=== PATIENT | male | born 1945 | race Caucasian/White ===

== ENCOUNTER 2019-12-02 07:56 | Observation (INO) ==
--- NOTE | 2019-11-01 13:13 | PAT Medication Instructions ---
Medication Instructions Date of Service November 01, 2019 Home Medications acetaminophen [Tylenol Arthritis Pain] 1,300 mg PO Q12H PRN atorvastatin 20 mg PO HS calcium acetate 2,001 - 2,668 mg PO TIDM docusate sodium [Stool Softener] 100 mg PO DAILY hydralazine 25 mg PO QAM insulin glargine [Lantus U-100 Insulin] 55 - 75 unit SUBCUT HS omeprazole 20 mg PO BID warfarin 2 mg PO 3XWK warfarin 4 mg PO 4XWK B complex-vitamin C-folic acid [Renal Vitamin] 1 tab PO DAILY insulin lispro [Humalog U-100 Insulin] 55 - 79 sliding scale dose SUBCUT TID metoprolol tartrate 12.5 mg PO BID DO NOT take the morning of surgery calcium acetate 2,001 - 2,668 mg PO TIDM docusate sodium [Stool Softener] 100 mg PO DAILY B complex-vitamin C-folic acid [Renal Vitamin] 1 tab PO DAILY insulin lispro [Humalog U-100 Insulin] 55 - 79 sliding scale dose SUBCUT TID Take morning of surgery With a small sip of water, OTHERWISE NOTHING TO EAT OR DRINK AFTER MIDNIGHT: acetaminophen [Tylenol Arthritis Pain] 1,300 mg PO Q12H PRN (if needed, may be taken up to four hours before surgery) hydralazine 25 mg PO QAM omeprazole 20 mg PO BID metoprolol tartrate 12.5 mg PO BID Take evening before surgery acetaminophen [Tylenol Arthritis Pain] 1,300 mg PO Q12H PRN (if needed) atorvastatin 20 mg PO HS calcium acetate 2,001 - 2,668 mg PO TIDM docusate sodium [Stool Softener] 100 mg PO DAILY (if needed) insulin glargine [Lantus U-100 Insulin] 55 - 75 unit SUBCUT HS omeprazole 20 mg PO BID insulin lispro [Humalog U-100 Insulin] 55 - 79 sliding scale dose SUBCUT TID metoprolol tartrate 12.5 mg PO BID Other Notes If you have any questions please call us at [phone] or [phone] or [phone] or [phone]
--- NOTE | 2019-11-01 13:28 | Anesthesiology Consultation ---
Date of Service November 01, 2019 Assessment & Plan (1) Encounter for pre-operative examination: CHECK BSG, PTT/PT/INR AM DOS Chart Review Chart Review: Acceptable Risk for Surgery (pending pre op labs) and Patient seen in Pre Admission Testing Teaching & Discussion Instructed NPO after midnight before surgery, except medications with 15 cc of water. Medication instructions provided according to the PAT guidelines. History Surgery Operation Date: 12/02/19 07:30 Proposed Procedures p Right Foot Triple Arthodesis, - Kwame Jimenez DO s Percutaneous Achilles Tendon Lengthening - Kwame Jimenez DO Height/Weight Height: 5 ft 10.5 in Weight: 117.5 kg Allergies Allergy/AdvReac Type Severity Reaction Status Date / Time lisinopril Allergy Unknown NOT TO Verified 10/26/19 13:30 TAKE DUE TO KIDNEY DISEASE pioglitazone Allergy Unknown NOT TO Verified 10/26/19 13:30 TAKE DUE TO KIDNEY DISEASE Medications Home Medications Medication Instructions Recorded Confirmed Last Taken acetaminophen [Tylenol Arthritis 1,300 mg PO Q12H PRN 07/05/19 10/26/19 Unknown Pain] atorvastatin 20 mg PO HS 07/05/19 10/26/19 Unknown calcium acetate 2,001 - 2,668 mg PO TIDM 07/05/19 10/26/19 Unknown docusate sodium [Stool Softener] 100 mg PO DAILY 07/05/19 10/26/19 Unknown hydralazine 25 mg PO QAM 07/05/19 10/26/19 Unknown insulin glargine [Lantus U-100 55 - 75 unit SUBCUT HS 07/05/19 10/26/19 Unknown Insulin] omeprazole 20 mg PO BID 07/05/19 10/26/19 Unknown warfarin 2 mg PO 3XWK 07/05/19 10/26/19 Unknown warfarin 4 mg PO 4XWK 07/05/19 10/26/19 Unknown B complex-vitamin C-folic acid 1 tab PO DAILY 10/26/19 10/26/19 Unknown [Renal Vitamin] insulin lispro [Humalog U-100 55 - 79 sliding scale dose SUBCUT 10/26/19 10/26/19 Unknown Insulin] TID metoprolol tartrate 12.5 mg PO BID 10/26/19 10/26/19 Unknown Past Medical History Medical History (Updated 11/01/19 @ 13:36 by Hasmukh Zuleta) A-V fistula left Anemia Ankle pain Barretts esophagus hx Chronic back pain Chronic kidney disease Deep vein thrombosis ~2009 S/P KNEE SURGERY Degenerative disc disease Diabetes mellitus, type 2 iddm Generalized pain GERD (gastroesophageal reflux disease) Hemodialysis patient Thursday, & Thursday at [facility] [place], [place] Hyperlipidemia Hypertension Kidney stones On anticoagulant therapy d/t history of blood clots Osteoarthritis Pulmonary embolism over 10 years ago, separate incident from DVT Exercise / Class Metabolic Activity III < 4 Walking/Shop/Light housework (using cane for ambulation, denies chest pain, some SOB, pt feels 2/2 ankle pain causing difficulty with ambulation) Past Surgical History Surgical History H/O shoulder replacement right History of cardiac cath [facility] July 2019. no stents. History of carpal tunnel release bilateral History of cataract surgery bilateral History of colonoscopy History of esophagogastroduodenoscopy (EGD) History of herniorrhaphy left inguinal hernia repair History of open reduction and internal fixation (ORIF) procedure left femur History of total knee replacement bilateral S/P arteriovenous (AV) fistula creation left S/P revision of total knee right Past Anesthesia History No Hx of Anesthesia Complications and No Family Hx of Anesthesia Complications History of PONV No Hx of PONV and No Hx of Motion Sickness Social History Smoking Status: Former smoker tobacco type: cigarettes and smokeless tobacco Do You Dip or Chew Tobacco: No (quit) Smoking End Date: quit Hx Alcohol Use: Yes Alcohol type: hard liquor alcohol intake frequency: holidays/special occasions only Hx Substance Use: No substance use type: does not use Review of Systems Pt denies any recent chest pain, shortness of breath, palpitations, cough, fever or URI. Physical Exam Vital Signs BP: 113/68 P: 88bpm SPO2: 96% RA T: 98.8 F R: 18 Constitutional + obese ENMT Mouth: + dentures and + edentulous Thyromental Distance: < 3.5 Finger Breadths (3) Mallampati Class: I Neck + thick neck and + limited neck extension (mildly, some pain with full extension) Respiratory normal respiratory effort Auscultation: lungs clear to auscultation bilaterally Cardiovascular Rate/Rhythm: regular rate and regular rhythm Heart Sounds: no murmur Testing Electrocardiogram Date: 08/08/19 Findings: + NSR @ (72) Chest X-Ray Date: 07/15/19 Findings: + NAD Echocardiogram Date: 02/21/19 EF: 65% Ventricle is mildly dilated. Overall left ventricular systolic function is normal. The left atrium is markedly dilated. The right atrium is mildly enlarged. Mild mitral regurgitation is present. The aortic valve is sclerotic with no evidence of stenosis or insufficiency. Mild to moderate tricuspid regurgitation. The pulmonic valve was not well visualized. Stress Test Date: 07/07/19 Type: nuclear Mild reversible ischemia noted in the distal inferolateral wall and adjoining apex. Borderline enlarged left ventricular volume with EF 67%. Mild hypokinesis and decreased wall thickening noted in the distal inferolateral wall and probably apex as well. Patient experienced no ischemic symptoms or EKG signs of ischemia during stress. Probability of stress-induced ischemia is intermediate considering position shifts during the study and imaging done with arm by the side of the patient. *Pt had subsequent cath as below. Cardiac Catheterization Date: 08/08/19 Nonobstructive CAD. There is no left main, separate ostia for the LAD/LCx. LAD has some luminal irregularities proximally and a 30% lesion in the distal, apical segment. LCx is a large dominant vessel with some luminal irregularities. Ramus is a large vessel with focal 40 to 50% disease proximally. RCA is a small, nondominant vessel and is angiographically normal. Recommendations: Continue risk factor modification with statin. No further work-up for CAD necessary prior to renal transplantation consideration.
[2019-11-01 16:03] LABS: Basophils # (auto) 0.02 K/uL (0-0.2); Basophils % (auto) 0.2 %; Eosinophils # (auto) 0.12 K/uL (0-0.5); Hematocrit (blood only) 36.3 % (42-52); Hemoglobin 11.7 g/dL (14.0-18.0); Immature Granulocytes # (auto) 0.13 K/uL (0.00-0.02); Immature Granulocytes % (auto) 1.1 %; Lymphocytes # (auto) 1.34 K/uL (1.2-3.4); Lymphocytes % (auto) 11.2 %; Mean Corpuscular Hemoglobin 33.3 pg (25-34); Mean Corpuscular Hgb Conc 32.2 g/dL (32-36); Mean Corpuscular Volume 103.4 fL (80-100); Monocytes # (auto) 0.71 K/uL (0.11-0.59); Neutrophils # (auto) 9.61 K/uL (1.4-6.5); Neutrophils % (auto) 80.5 %; Platelet Count 259 K/uL (130-400); RDW Coefficient of Variation 16.1 % (11.5-14.5); RDW Standard Deviation 60.2 fL (36.4-46.3); Red Blood Count 3.51 M/uL (4.7-6.1); White Blood Count 11.93 K/uL (4.8-10.8)
[2019-11-01 16:12] LABS: Appearance Urine Turbid (Clear); Bacteria Urine Automated Negative (Negative); Bilirubin Urine Negative (Negative); Blood Urine 1+ (Negative); Color Urine Yellow; Epithelial Cell Urine Auto >30 /lpf (0-5); Glucose Urine UA Negative (Negative); Ketones Urine Negative (Negative); Leukocyte Esterase Urine 2+ (Negative); Nitrite Urine Negative (Negative); Protein Urine 2+ (Negative); Specific Gravity Urine 1.019 (1.000-1.030); Urobilinogen Urine Negative (Negative); WBC Urine Automated >30 /hpf (0-5)
[2019-11-01 16:20] LABS: INR 2.6 (0.9-1.1); Partial Thromboplastin Ratio 1.4; Prothrombin Time 24.5 Seconds (9.0-12.0)
[2019-11-01 16:28] LABS: Calcium 10.1 mg/dl (8.5-10.1); Creatinine Clr Calc Pharmacy 13.8 ml/min; Est GFR (African American) 9.5; Est GFR (Non-African American) 8.2; Potassium 3.7 mmol/L (3.5-5.1)
[2019-11-01 16:49] LABS: Renal Epithelial Cells Urine 0-5 /lpf (0-5)
--- NOTE | 2019-12-01 14:42 | History & Physical Report ---
Date of Service December 01, 2019 Assessment & Plan (1) Posterior tibial tendon dysfunction (PTTD) of right lower extremity: Schedule right triple arthrodesis, perc. NEISHA for 12.02.2019. All potential risks, benefits, complications, alternatives, and rehab have been discussed with the patient and he wishes to proceed. Plan for restart of coumadin post op for DVT prophylaxis. (2) Primary osteoarthritis, right ankle and foot: (3) Achilles tendon contracture, right: History of Present Illness Chief Complaint: right foot pain Primary Care Provider: Chele Huitron DO Allergies Allergy/AdvReac Type Severity Reaction Status Date / Time lisinopril Allergy Unknown NOT TO Verified 10/26/19 13:30 TAKE DUE TO KIDNEY DISEASE pioglitazone Allergy Unknown NOT TO Verified 10/26/19 13:30 TAKE DUE TO KIDNEY DISEASE Home Medications Home Medications Medication Instructions Recorded Confirmed Type acetaminophen [Tylenol Arthritis 1,300 mg PO Q12H PRN 07/05/19 10/26/19 History Pain] atorvastatin 20 mg PO HS 07/05/19 10/26/19 History calcium acetate(phosphat bind) 2,001 - 2,668 mg PO TIDM 07/05/19 10/26/19 History docusate sodium [Stool Softener] 100 mg PO DAILY 07/05/19 10/26/19 History hydralazine 25 mg PO QAM 07/05/19 10/26/19 History insulin glargine [Lantus U-100 55 - 75 unit SUBCUT HS 07/05/19 10/26/19 History Insulin] omeprazole 20 mg PO BID 07/05/19 10/26/19 History warfarin 2 mg PO 3XWK 07/05/19 10/26/19 History warfarin 4 mg PO 4XWK 07/05/19 10/26/19 History B complex-vitamin C-folic acid 1 tab PO DAILY 10/26/19 10/26/19 History [Renal Vitamin] insulin lispro [Humalog U-100 55 - 79 sliding scale dose SUBCUT 10/26/19 10/26/19 History Insulin] TID metoprolol tartrate 12.5 mg PO BID 10/26/19 10/26/19 History Past Med/Surg History Medical History (Updated 12/01/19 @ 14:39 by Segundo White PA-C) A-V fistula LUE Anemia Ankle pain Barretts esophagus hx Chronic back pain Chronic kidney disease Deep vein thrombosis ~2009 S/P KNEE SURGERY Degenerative disc disease Diabetes mellitus, type 2 iddm Generalized pain GERD (gastroesophageal reflux disease) Hemodialysis patient Thursday, & Thursday at [facility] in [place], [place] Hyperlipidemia Hypertension Kidney stones On anticoagulant therapy d/t history of blood clots Osteoarthritis Pulmonary embolism over 10 years ago, separate incident from DVT Surgical History H/O shoulder replacement right History of cardiac cath [facility] July 2019. no stents. History of carpal tunnel release bilateral History of cataract surgery bilateral History of colonoscopy History of esophagogastroduodenoscopy (EGD) History of herniorrhaphy left inguinal hernia repair History of open reduction and internal fixation (ORIF) procedure left femur History of total knee replacement bilateral S/P arteriovenous (AV) fistula creation left S/P revision of total knee right Social History Preferred Language: Divehi Communication Ability: Effective Hazardous Substances Engineer Required: No Beliefs That Will Affect Care: None Current Living Situation: Spouse Other Information That Helps Us Care for You: No Feels Safe at Home: Yes Safety Concerns: Feels Safe At This Time Smoking Status: Former smoker Tobacco Type: cigarettes and smokeless tobacco ; Do You Dip or Chew Tobacco: No (quit) ; Smoking End Date: quit ; Second Hand Exposure: Yes (hx) ; Tobacco Cessation Education Requested by Patient: No Hx Alcohol Use: Yes Alcohol type: hard liquor Hx Substance Use: No Physical Exam Constitutional: well developed and well nourished; no acute distress and not intoxicated appearing ENMT: external ear and nose normal, oropharynx normal Neck: trachea midline, no thyromegaly Respiratory: normal respiratory effort, lungs clear to auscultation Cardiovascular: Rate/Rhythm: regular rate and regular rhythm Gastrointestinal (Abdomen): normal bowel sounds, soft, nontender, no hepatosplenomegaly Musculoskeletal: Gait: + antalgic gait (right) Ankle: + ankle abnormal to inspection (right pes planovalgus), + limited ROM of ankle (right dorsiflexion and inversion/eversion) and + joint line tenderness (ankle) (right sinus tarsi, PTT, and talonavicular joint.); no skin erythema and no ecchymosis Skin: no rashes, warm and dry Neurologic: normal touch/pain/proprioception Psychiatric: A+Ox3, euthymic affect Lymphatic: no cervical or axillary lymphadenopathy
[~2019-12-02 07:56] MED LIST: CEFAZOLIN 2000MG 2,000 MG/15 ML SYR IV SCH; ROPIVACAINE 0.5% 5 MG/ML 30 ML VIAL ONE; SODIUM CHLORIDE 0.9% 1000ML IV SCH
[2019-12-02 09:13] LABS: INR 1.1 (0.9-1.1); Partial Thromboplastin Ratio 1.1; Partial Thromboplastin Time 28.5 Seconds (21.0-31.0); Prothrombin Time 10.9 Seconds (9.0-12.0)
[2019-12-02] MEDS ORDERED: MIDAZOLAM HCL 1 MG/ML 2ML VIAL ONE (09:41)
[2019-12-02] MEDS ORDERED: ONDANSETRON INJ 2 MG/ML 2 ML VIAL ONE (09:41)
[2019-12-02] MEDS ORDERED: GLYCOPYRROLATE 0.2 MG/ML VIAL ONE (09:41)
[2019-12-02] MEDS ORDERED: DEXAMETHASONE SOD INJ 4 MG/ML VIAL ONE (09:41)
[2019-12-02] MEDS ORDERED: LIDOCAINE HCL 2% 2 ML VIAL/AMP(20MG/ML) INFIL ONE (09:41)
[2019-12-02] MEDS ORDERED: PROPOFOL IV EMULSION 10 MG/ML 20 ML VIAL IV ONE (09:41)
[2019-12-02] MEDS ORDERED: KETAMINE HCL INJ 50 MG/ML 10 ML VIAL ONE (09:41)
--- NOTE | 2019-12-02 10:00 | History & Physical Bridge Note ---
Date of Service December 02, 2019 History & Physical Bridge Note I have examined the patient, reviewed the History & Physical and in the interval since the performance of the History & Physical I have noted the following changes of clinical significance: no changes noted
[2019-12-02] MEDS ORDERED: BUPIVACAINE 0.25% 30 ML VIAL ONE (10:08)
[2019-12-02] MEDS ORDERED: BACITRACIN INJ 50,000 UNIT VIAL ONE (10:18)
[2019-12-02 10:21] LABS: BUN Creatinine Ratio 6.1 (10-20); Calcium 9.4 mg/dl (8.5-10.1); Creatinine Clr Calc Pharmacy 11.4 ml/min; Est GFR (African American) 7.5; Est GFR (Non-African American) 6.5; Potassium 3.8 mmol/L (3.5-5.1)
[2019-12-02] MEDS ORDERED: fentaNYL citrate 100 MCG/2 ML VIAL IV PRN (11:23)
[2019-12-02] MEDS ORDERED: HYDROmorphone INJ 1 MG/ML SYRINGE IV PRN (11:23)
[2019-12-02] MEDS ORDERED: ePHEDrine sulfate 50 MG/ML AMP IV PRN (11:23)
[2019-12-02] MEDS ORDERED: ATROPINE SULFATE 0.1 MG/ML 10ML SYR IV PRN (11:23)
[2019-12-02] MEDS ORDERED: ONDANSETRON INJ 2 MG/ML 2 ML VIAL IV PRN (11:23)
[2019-12-02] MEDS ORDERED: fentaNYL citrate 100 MCG/2 ML VIAL ONE ×3 (12:23→13:55)
[2019-12-02] MEDS ORDERED: CEFAZOLIN 250 MG/ML 1 GM VIAL ONE (13:02)
--- NOTE | 2019-12-02 13:52 | Fluoroscopy Report ---
FL foot RT 2V HISTORY: 74 years-old Male RIGHT FOOT TRIPLE ARTHODESIS COMPARISON: None TECHNIQUE: 2 spot fluoroscopic images of the right foot were obtained utilizing 24.2 seconds fluorosc opy time FINDINGS: There are 3 total cannulated screws of the hindfoot traversing the calcaneal navicular, cuboid calcan eal and talocalcaneal articulations compatible with subtalar arthrodesis. Expected postsurgical soft tissue swelling and deep tissue air. Multifocal osteoarthritis with marginal osteophytic spurring. Schilling rgical mary beth are noted projected over the posterior tissues at the level of the distal Achilles ten don. IMPRESSION: Fluoroscopic assistance as above. Please see operative report for further details. ACT 112: Negative or not required by law. The above report was generated using voice recognition software. It may contain grammatical, syntax o r spelling errors. Electronically signed by: Nilesh Mccormick M.D. 12/02/2019 1:50 PM
--- NOTE | 2019-12-02 14:19 | Post Operative Brief Note ---
Immediate Post Op Note v1 Date of Surgery December 02, 2019 Pre & Post Diagnosis Operation Date: 12/02/19 10:20 Pre-Op Diagnosis: (1) Posterior tibial tendon dysfunction (PTTD) of right lower extremity:. (2) Primary osteoarthritis, right ankle and foot: (3) Achilles tendon contracture, (4) os trigonum syndrome right: Post-Op Diagnosis: (1) Posterior tibial tendon dysfunction (PTTD) of right lower extremity: (2) Primary osteoarthritis, right ankle and foot: (3) Achilles tendon contracture, right: (4) Os Trigonum syndrome I identified the patient and participated in the time-out.: Yes Procedure Operation Date: 12/02/19 10:20 Actual Procedures p Right Foot Triple Arthodesis, Resection of Os Trigonum,(Right) - Kwame Jimenez DO s Percutaneous Achilles Tendon Lengthening(Right) - Kwame Jimenez DO Surgeon Kwame Jimenez DO Product Blending Supervisor Segundo White PA-C Estimated Blood Loss 5 Findings Consistent with Post-Op Diagnosis Specimens None Drains Hemovac Drain Anesthesia Type General Regional Complications none Disposition Accompanied Patient To Recovery: Yes Disposition: Recovery Room
--- NOTE | 2019-12-02 15:06 | Anesthesiology Progress Note ---
Date of Service December 02, 2019 Anesthesia Post Procedure Vital Signs Vital Signs: Temp Pulse Pulse Resp BP Pulse Ox 12/02/19 14:59 37.3 C 88 19 133/84 97 12/02/19 14:50 92 H 17 109/59 L 95 12/02/19 14:40 87 16 129/79 97 12/02/19 14:30 91 H 15 125/56 L 97 12/02/19 14:20 92 H 21 128/55 L 97 12/02/19 14:10 84 17 129/50 L 99 12/02/19 14:04 37.1 C 87 24 123/47 L 99 12/02/19 08:30 36.8 C 79 20 137/67 98 Pain Intensity Right Ankle: Pain Intensity: 0 Transfer of Care Handoff Completed per policy Notes Mental Status: alert / awake / arousable and participated in evaluation Patient Amnestic to Procedure: Yes Nausea / Vomiting: adequately controlled Pain: adequately controlled Airway Patency, RR, SpO2: stable & adequate BP & HR: stable & adequate Hydration State: stable & adequate Anesthetic Complications: no major complications apparent and Pt Satisfied with anesthetic care Notes: Block is functioning well
[2019-12-02] MEDS ORDERED: NALOXONE HCL 0.4 MG/1 ML VIAL/CARP IV PRN (15:21)
[2019-12-02] MEDS ORDERED: MAGNESIUM HYDROXIDE SUSP 30 ML UDC PO PRN (15:21)
[2019-12-02] MEDS ORDERED: bisacodyL 10 MG SUPP PR PRN (15:21)
[2019-12-02] MEDS ORDERED: HYDROmorphone INJ 0.5 MG/0.5 ML SYR IV PRN (15:21)
[2019-12-02] MEDS ORDERED: SODIUM CHLORIDE 0.9% 1000ML 1,000 ML IV SCH (15:21)
[2019-12-02] MEDS ORDERED: PHARMACY GLYCEMIC MGMT CONSULT PRN (15:30)
[2019-12-02] MEDS ORDERED: CARBOHYDRATES FOR HYPOGLYCEMIA PO PRN (16:15)
[2019-12-02] MEDS ORDERED: GLUCAGON FOR INJ 1 MG VIAL IM PRN (16:15)
[2019-12-02] MEDS ORDERED: GLUCOSE 40% GEL 15 GM TUBE PO PRN (16:15)
[2019-12-02] MEDS ORDERED: DEXTROSE 50% 50 ML SYRINGE IV PRN (16:15)
[2019-12-02] MEDS ORDERED: GLUCOSE 10 TABS/TUBE PO PRN (16:15)
--- NOTE | 2019-12-02 16:18 | Pharmacy Report ---
Glycemic Control Consultation - Date of Service December 02, 2019 - Scope Scope: Glycemic Pharmacist consulted by Susanna John on 12/02/2019 for glycemic control and to write orders per [facility] inpatient glycemic control protocol - Objective Weight: 118 kg Accuchecks BSG (last 24hrs): 12/02/19 12/02/19 12/02/19 08:29 08:46 14:09 Glucose 146 H POC Glucose 157 H 185 H Laboratory Data (last 24hrs): 12/02/19 08:46 Potassium 3.8 Carbon Dioxide 29 Anion Gap 13.0 H Creatinine 7.51 H* Est Cr Clr Drug Dosing 11.4 - Recent Pertinent Medications Outpatient Anti-diabetic Regimen: * Lantus 55-75 units nightly (per scale) and Novolog 55-79 units TIDM (per scale) * A1c not reflective of control due to HD status Risk Factors for Insulin Resistance: * Steroids: dexamethasone 4 mg intraoperatively * Recent Surgery POD 0 for tendon repair * Diet: T2DM - Assessment & Plan Assessment & Plan: ASSESSMENT: * Mr Woodard is a very nice gentleman who came in for tendon surgery repair. I was able to talk to him via the phone. * He takes Lantus as a scale in the evening. Sometimes, when his blood sugar is below 150 mg/dL, he does not take Lantus. He was not able to estimate the number of times per week he takes Lantus. I asked when was the highest dose he took this week. He told me he took 75 units last Thursday when his BSG was over 230 mg/dL. He then did not take Lantus the next day. Two days after Lantus he took a smaller dose (aka 30-40 units). This indicates to me that the patient's true basal needs is probably around 40 units/day. With dexamethasone in the OR (and the fact that the patient did not take Lantus last night) will give 55 units (40 multiplied by about 1.2 to account for steroids). * It was difficult for me to tease out the patient's Novolog requirements. He told me he eats a lot of protein anymore. With steroids, I think it is fine to utilize weight-based stress of 3 for now. This will need to be loosened. * Patient does not take insulin if BSG less than 150 mg/dL at home. He said he would take insulin here if his BSG was less than that though. He reported hypoglycemia with BSGs around 80 mg/dL. * Does not really have hypoglycemia anymore at home since he stopped taking insulin when BSG less than 150 mg/dL. PLAN FOR INPATIENT GLYCEMIC CONTROL: * Basal insulin * Lantus 55 units SQ x 1 * Bolus insulin * NovoLog per scale ACHS or Q6hrs while NPO * Goal Range: Low 120 mg/dL - High 150 mg/dL * Correction Factor: 15 mg/dL/unit * Nutritional / Prandial insulin per carb ratio of 1 unit per 5 grams CHO consumed * Please note that the plan above was derived based on current level of insulin resistance and hospital stress. These recommendations are appropriate for inpatient admission only. Plan of care upon discharge will need to be reassessed to avoid potential outpatient hypo/hyperglycemia. Thank you.
[2019-12-02] MEDS ORDERED: INSULIN GLARGINE SOLOSTAR 100 UNITS/ML 3 ML PEN SC ONE (16:30)
--- NOTE | 2019-12-02 16:36 | Consultation ---
Date of Consultation December 02, 2019 Assessment & Plan (1) S/P ankle arthrodesis: (2) Achilles tendon contracture, right: (3) Primary osteoarthritis, right ankle and foot: (4) Posterior tibial tendon dysfunction (PTTD) of right lower extremity: S/P R ankle Triple Arthrodesis with resection of os trigonum by Dr. Jimenez POD #0 EBL 5ml, hemovac in place tolerated procedure well pain/wound management per ortho activity and therapy as directed by ortho encourage incentive spirometry warfarin and anticoagulation per ortho, recommend resuming lovenox/warfarin bridge when able monitor H&H (5) ESRD (end stage renal disease): on HD Dr. Agosto consulted to have HD tomorrow Daily weights, strict I and O Fluid restriction Stop IV fluid (6) Diabetes mellitus, type 2: Insulin-dependent On hemodialysis Glycemic pharmacist on board, appreciate their input and management (7) Hypertension: Blood pressure 134/66 Continue metoprolol and hydralazine (8) Barretts esophagus: Continue omeprazole (9) Anemia: Secondary to chronic renal disease Preop H&H 11.7 and 36.3 (10) Deep vein thrombosis: hx of PE, unprovoked On long-term warfarin therapy Anticoagulation as per surgery -he was on Lovenox bridge preop, would recommend resuming after 24 hours postop Disposition: Per primary Follow-up: PCP Dr. Skaggs upon discharge along with appropriate orthopedic follow-up Pt was seen and examined with Dr. Truong please see addendum Thank you for this consultation. We will follow the patient with you during their hospital stay. You can reach a [facility]/05 via pager @ [phone]. Starting 12/03/2019 patient given the care of Dr. Trinidad Supervising Physician Co-Signing Physician Notes I saw this patient with the physician education assistant, I participated in the history, physical, review of systems, and physical exam. I reviewed the medications with the patient and the physician education assistant and helped reconcile the medications. I helped take a detailed family and social history as well. I formulated the assessment and plan personally with the physician education assistant and went over it with the patient. Physical Exam Gen-AAO x 3, NAD, Afebrile, obese Head-NCAT, EOMI, PERRLA, Anicteric Sclera, No Posterior Pharyngeal Erythema Neck-Supple, No JVD, No Thyromegaly, No Masses, No LAD, No Bruits Lungs-Clear to Auscultation Bilaterally, No Rales, No Rhonchi, No Wheezing, No Crepitus Chest-No S4, +S1, +S2, No S3, No Murmurs, No Rubs, No Gallops, No Ectopy Abdomen-Soft, Bowel Sounds Present, Non Tender, Non Distended, No Hepatomegaly, No Splenomegaly, No Palpable Masses, No Rebound, No Rigidity, No Guarding Musculoskeletal-Full Range of Motion Bilaterally, No CVAT Extremities-No Cyanosis, No Clubbing, No Edema, R ankle c Ice pack and Heme vac Nuero-Cranial Nerves II-XII grossly intact, Motor WNL, DTRs WNL, Strength WNL, Non Focal Psych-Normal Mood History of Present Illness Requesting Physician: Dr. Jimenez Reason for Consultation: Postop medical management Attending Physician: Kwame Jimenez, History of Present Illness This is a 74-year-old male who has significant past medical history of ESRD on HD //, CAD, IDDM 2, HTN, HLD, history of PE on long-term anticoagulation with warfarin, chronic low back pain, Gauthier's esophagus, anemia of chronic disease who presents for elective right foot triple arthrodesis by Dr. Jimenez. is at bedside. He tolerated the procedure well. "I could have went home today but I need to have dialysis tomorrow." He currently complains of back pain which is chronic for him. He denies any pain on the right foot. He denies any fever, chills, sweats, lightheadedness, dizz iness, chest pain, shortness of breath, palpitations, nausea, vomiting, abdominal pain. He is mostly anuric with hemodialysis. Currently has an appetite. He offers no acute concerns or complaints. He tells me his dialysis has been pre arranged for tomorrow. He has hx of CAD. Currently been worked up for renal transplant and had + stress test for inducible ischemia. He underwent cardiac catheterization on 07/2019 which revealed nonobstructive CAD with left dominance. He is unsure of his last A1c but is currently insulin-dependent. States his blood sugars are frequently under 150. Does have history of PE many years ago, unprovoked. Since then he is maintained on warfarin and was on Lovenox bridge until 11/30/2019. Allergies Allergy/AdvReac Type Severity Reaction Status Date / Time lisinopril Allergy Unknown NOT TO Verified 12/02/19 08:32 TAKE DUE TO KIDNEY DISEASE pioglitazone Allergy Unknown NOT TO Verified 12/02/19 08:32 TAKE DUE TO KIDNEY DISEASE Home Medications Home Medications Medication Instructions Recorded Confirmed Type acetaminophen [Tylenol Arthritis 1,300 mg PO Q12H PRN 07/05/19 12/02/19 History Pain] atorvastatin 20 mg PO HS 07/05/19 12/02/19 History calcium acetate(phosphat bind) 2,001 - 2,668 mg PO TIDM 07/05/19 12/02/19 History docusate sodium [Stool Softener] 100 mg PO DAILY 07/05/19 12/02/19 History hydralazine 25 mg PO QAM 07/05/19 12/02/19 History insulin glargine [Lantus U-100 55 - 75 unit SUBCUT HS 07/05/19 12/02/19 History Insulin] omeprazole 20 mg PO BID 07/05/19 12/02/19 History warfarin 2 mg PO 3XWK 07/05/19 12/02/19 History warfarin 4 mg PO 4XWK 07/05/19 12/02/19 History B complex-vitamin C-folic acid 1 tab PO DAILY 10/26/19 12/02/19 History [Renal Vitamin] insulin lispro [Humalog U-100 55 - 79 sliding scale dose SUBCUT 10/26/19 12/02/19 History Insulin] TID metoprolol tartrate 12.5 mg PO BID 10/26/19 12/02/19 History Lovenox SUBCUT DAILY 12/02/19 History Patient History Medical History A-V fistula LUE Anemia Ankle pain Barretts esophagus hx Chronic back pain Chronic kidney disease Deep vein thrombosis ~2009 S/P KNEE SURGERY Degenerative disc disease Diabetes mellitus, type 2 iddm Generalized pain GERD (gastroesophageal reflux disease) Hemodialysis patient Thursday, & Thursday at [facility] in [place], [place] Hyperlipidemia Hypertension Kidney stones On anticoagulant therapy d/t history of blood clots Osteoarthritis Pulmonary embolism over 10 years ago, separate incident from DVT Surgical History H/O shoulder replacement right History of cardiac cath [facility] July 2019. no stents. History of carpal tunnel release bilateral History of cataract surgery bilateral History of colonoscopy History of esophagogastroduodenoscopy (EGD) History of herniorrhaphy left inguinal hernia repair History of open reduction and internal fixation (ORIF) procedure left femur History of total knee replacement bilateral S/P arteriovenous (AV) fistula creation left S/P revision of total knee right Family History Mother Family hx of colon cancer Uncle Family history of diabetes mellitus Social History Preferred Language: Bhutanese Communication Ability: Effective Kiln Furniture Caster Required: No Beliefs That Will Affect Care: None Current Living Situation: Spouse Other Information That Helps Us Care for You: No Feels Safe at Home: Yes Safety Concerns: Feels Safe At This Time Smoking Status: Former smoker Tobacco Type: cigarettes and smokeless tobacco ; Do You Dip or Chew Tobacco: No (quit) ; Smoking End Date: quit ; Second Hand Exposure: Yes (hx) ; Tobacco Cessation Education Requested by Patient: No Hx Alcohol Use: Yes Alcohol type: hard liquor Hx Substance Use: No Review of Systems Review of Systems: All systems reviewed & are unremarkable except as noted in HPI & below Physical Exam Physical Exam: Constitutional: WD/WN, M, vitals as above, NAD, sitting up in bed, pleasant, conversing easily Head: Normocephalic, Atraumatic Eyes: PERRL, conjunctivae normal, anicteric sclerae ENMT: external ear and nose normal, oropharynx normal Neck: trachea midline, no thyromegaly normal visual inspection Respiratory: normal respiratory effort, lungs clear to auscultation, no wheeze, rales, rhonchi. Normal insp/exp effort, no accessory muscle use Cardiovascular: RRR, no murmur, no edema, LUE AV Fistula patent bruit Vessels: no JVD or carotid bruit Chest: normal inspection of chest Abdomen: normal bowel sounds, soft, nontender, no hepatosplenomegaly Musculoskeletal: no cyanosis or clubbing, extremities active ROM x 3, RLE c ast/dressing NVI distally, hemovac in place Skin: no rashes, warm and dry normal turgor Neurologic: PERRL, EOMI, accommodation nl, no face palsy, no dysarthria CN's II-XI intact bilaterally and moves all extremities Psychiatric: A+Ox3, euthymic affect Lymphatic: no cervical or axillary lymphadenopathy : deferred Results & Data ([facility]) Vital Signs (Past 12 Hours) Vital Signs Temp Pulse Pulse Resp BP Pulse Ox 12/02/19 16:30 37.1 C 81 18 134/66 95 12/02/19 15:10 85 14 133/45 L 96 12/02/19 15:00 37.3 C 88 19 133/84 97 12/02/19 14:50 92 H 17 109/59 L 95 12/02/19 14:40 87 16 129/79 97 12/02/19 14:30 91 H 15 125/56 L 97 12/02/19 14:20 92 H 21 128/55 L 97 12/02/19 14:10 84 17 129/50 L 99 12/02/19 14:04 37.1 C 87 24 123/47 L 99 12/02/19 08:30 36.8 C 79 20 137/67 98 Laboratory Results [facility] 12/02/19 08:46 Sodium 134 L Potassium 3.8 Chloride 92 L Carbon Dioxide 29 BUN 46 H Creatinine 7.51 H* Glucose 146 H Calcium 9.4 Diagnostic Findings Foot Xray: FINDINGS: There are 3 total cannulated screws of the hindfoot traversing the calcaneal navicular, cuboid calcaneal and talocalcaneal articulations compatible with subtalar arthrodesis. Expected postsurgical soft tissue swelling and deep tissue air. Multifocal osteoarthritis with marginal osteophytic spurring. Surgical mary beth are noted projected over the posterior tissues at the level of the distal Achilles tendon. IMPRESSION: Fluoroscopic assistance as above. Please see operative report for further details. Medications Administered Discontinued Medications Bacitracin (Bacitracin) Confirm Administered Dose 50,000 units .ROUTE .STK-MED ONE Stop: 12/02/19 10:19 Last Admin: 12/02/19 13:37 Dose: 50,000 units Documented by: [id number] Cefazolin Sodium (Ancef 2000mg) 2,000 mg in 15 mls @ 3.75 mls/min IV PREOP ANTHONY; Protocol Stop: 12/02/19 18:00 Last Admin: 12/02/19 10:44 Dose: 3.75 mls/min Documented by: [id number] Sodium Chloride (Nss 1000ml) 1,000 mls @ 15 mls/hr IV .Q24H ANTHONY Stop: 12/03/19 05:59 Last Infusion: 12/02/19 10:45 Dose: 0 mls/hr Documented by: [id number] Admin: 12/02/19 08:54 Dose: 15 mls/hr Documented by: [id number] ECG Rate (beats per minute): 82 Rhythm: normal sinus Findings: + prolonged QT (qtc 499ms)
[2019-12-02] MEDS: ACETAMINOPHEN 500 MG TAB PO SCH ×2 (17:15→21:34)
[2019-12-02] MEDS: CALCIUM ACETATE 667 MG CAP PO SCH (17:51)
[2019-12-02] MEDS: CEFAZOLIN 2000MG 2,000 MG/15 ML SYR IV SCH (17:52)
[2019-12-02] MEDS: WARFARIN SOD 5 MG TAB PO SCH (17:52)
[2019-12-02] MEDS: INSULIN ASPART 100 UNITS/ML 3 ML PEN SC SCH ×2 (18:04→21:36)
--- NOTE | 2019-12-02 19:10 | Operative Report ---
DATE OF OPERATION: 12/02/2019 PREOPERATIVE DIAGNOSES: 1. Right hindfoot degenerative joint disease. 2. Osteoarthritis. 3. Posterior tibial tendon dysfunction grade 3. 4. Achilles tendon contracture. 5. Os trigonum syndrome. POSTOPERATIVE DIAGNOSES: 1. Right hindfoot degenerative joint disease. 2. Osteoarthritis. 3. Posterior tibial tendon dysfunction grade 3. 4. Achilles tendon contracture. 5. Os trigonum syndrome. PROCEDURES: 1. Right foot triple arthrodesis. 2. Percutaneous tendo Achilles lengthening. 3. Resection os trigonum. SURGEON: Kwame Jimenez DO BEAM MACHINE OPERATOR: Segundo White PA-C who was present for patient positioning, sterile prep and drape, management of retractors and instruments. He was present through the critical portions of the case including wound closure, application of sterile dressing and transport of the patient to recovery. ANESTHESIA: General regional. SPECIMENS: None. DRAINS: Hemovac x1. COMPLICATIONS: None. BLOOD LOSS: 2 mL. PERTINENT HISTORY: This is a 74-year-old gentleman who had severe chronic and worsening pain, swelling and deformity of the right foot which is worse over the last 6 to 8 months. He had severe sharp pain along the medial and lateral aspects of the hindfoot. He was seen in clinic. He was evaluated with radiographs and physical exam, noted to have likely rupture of his posterior tibial tendon. MRI was then obtained noting confirmation of rupture of the posterior tibial tendon with degenerative arthritis of the hindfoot. The patient had already attempted and failed physical therapy, modification of activities, use of an assistive device, anti-inflammatories and failed these measures. The patient was then scheduled for surgery as indicated. All potential risks, benefits, complications, alternatives, potential for incomplete relief of symptoms, need for further surgery, DVT, PE, , persistent pain, swelling, scarring, weakness, neurovascular injury, wound complications, hardware failure, nonunion, malunion and bone fracture were discussed with the patient. The patient tolerated the procedure as indicated. DESCRIPTION OF PROCEDURE: The patient was taken to the Operating Suite, placed supine on the Operating Room table, after consent and identification of the proper operative site, the patient was anesthetized. LMA was placed. Tourniquet was placed high on the left lower extremity. Right lower extremity was then sterilely prepped and draped in the usual fashion. Exsanguinated with an Esmarch bandage and tourniquet inflated to 350 mmHg. Next, the foot was held in dorsiflexion and a three-part percutaneous incision was made with an 11-blade scalpel to lengthen the Achilles tendon using standard technique. Next, the stab incisions were then closed using interrupted skin mary beth. Next, the 15-blade scalpel was used to make an incision from the distal aspect of the fibula to the base of the fourth metatarsal. The incision was deepened through subcutaneous tissue and meticulous hemostasis was obtained with electrocautery. Subcutaneous nerves were identified, retracted and protected. The extensor digitorum brevis was identified and was sharply elevated from the anterior process of the calcaneus revealing the sinus tarsi. Next, the sinus tarsi was debrided carefully with a rongeur and 15-blade scalpel. A cervical lamina special makeup fx artist instructor was placed in the sinus tarsi opening the subtalar joint. Subtalar joint was then prepared using curette and rongeur to remove articular cartilage down to subchondral bone. Copious irrigation was performed with sterile normal saline and then 2-mm drill bit was used to further prepare the joint surface with multiple drill holes in both surfaces of the subtalar joint and a small osteotome and mallet were used to fish scale the joint surfaces to increase surface area and bleeding. There is a large symptomatic os trigonum noted in the posterior aspect of the joint, this was then elevated with a curved curette and then sharply excised using a rongeur and a 15 blade scalpel. This fragment was then saved for later use as autograft. Next, the calcaneocuboid joint was then entered with the 15-blade scalpel, debrided of soft tissue and then a lamina special makeup fx artist instructor was placed in the joint opening it for preparation with a curette and rongeur to remove any articular surface down to subchondral bleeding bone. Next, the 2-mm drill bit was used to further prepare the joint with multiple drill holes into the joint and then a small osteotome and mallet were used to fish scale the joint. Next, the 15-blade was used to make an incision from the distal aspect of the tibia to the base of the naviculocuneiform joint. The incision was deepened through subcutaneous tissue. Meticulous hemostasis obtained with electrocautery. A Weitlaner retractor was placed in the wound. The greater saphenous vein was identified, retracted and protected. The capsule of the talonavicular joint was then entered sharply with a 15-blade scalpel and elevated both superior and inferiorly. A small Cameron was placed on the neck of the talus and further soft tissue elevation was performed with the 15-blade scalpel until the talonavicular joint was clearly visualized. The articular surface was then debrided with curette and rongeur and a cervical lamina special makeup fx artist instructor was placed in the joint. Next, it was irrigated with sterile normal saline and a 2-mm drill bit was used to make multiple holes in the joint surfaces and fish scaling was performed with a small osteotome and mallet. Next, the medial and lateral incisions were irrigated with sterile normal saline and the joint surfaces were then aligned appropriately based on alignment of the lower extremity and the kneecap. Subtalar joint was aligned and then a 7.3-mm cannulated guidepin was driven from the superior aspect of the talus across the subtalar joint into the calcaneus under fluoroscopic control. Next, an appropriate length 7.3-mm short-thread screw was placed under fluoroscopic control and countersunk slightly. Next, the guidepin was removed. Next, A 2.25 mm guidepin was used to stabilize the talonavicular joint in appropriate alignment and then the calcaneocuboid joint was then stabilized with appropriate alignment with a 2.25 mm guidepin under fluoroscopic control. Next, 7.3 mm long-thread cannulated screws were placed across the talonavicular and calcaneocuboid joints respectively under fluoroscopic control. All guidepins were removed. Wounds were irrigated with sterile normal saline and bone graft was then packed in and around the subtalar, talonavicular and calcaneocuboid joints which was comprised of morselized Autograft and approximately 15 cc cc of cancellous bone chips. A 10-Belgian single lumen Hemovac drain was then placed in the lateral aspect of the wound exiting dorsolaterally and the extensor digitorum brevis then closed back to its origin with interrupted 2-0 Vicryl sutures. The talonavicular joint capsule was closed using 2-0 Vicryl sutures. The dermis was closed using buried interrupted 3-0 Vicryl sutures medially and laterally and then skin incisions were closed using 4-0 Nylon sutures. A sterile compressive dressing and bulky Stevenson-Montemayor plaster splint was applied, overwrapped with an Leonardo wrap. The tourniquet was released. DISPOSITION: Patient awakened, toes noted pink and warm and then the patient was taken to Recovery in stable condition. I attest to the content of the Intraoperative Record and any orders documented therein. Any exceptions are noted below. MTDD
[2019-12-02] MEDS: DOCUSATE SODIUM 100 MG CAP PO SCH (20:14)
[2019-12-02] MEDS: METOPROLOL TARTRATE 25 MG TAB PO SCH (20:14)
[2019-12-02] MEDS ORDERED: ATORVASTATIN 20 MG TAB PO SCH (21:00)
--- NOTE | 2019-12-02 22:52 | Nephrology Consultation ---
Date of Consultation December 02, 2019 Assessment & Plan (1) ESRD (end stage renal disease): ESRD on HD TTS. Last HD was . Electrolytes are stable and no signs of volume overload. Will do HD tomorrow for 3.5hrs and target UF1.5 litres (2) Anemia: Hb is 11.7. No need for PRETTY (3) Hypertension: BP is controlled. Hold hydralazine in the morning pre HD History of Present Illness Reason for Consultation: ESRD Requesting Physician: Kwame Jimenez DO Attending Physician: Kwame Jimenez DO History of Present Illness This is a 74-year-old male who has significant past medical history of [facility]D on HD [facility]. Other PMH i nclude: CAD, IDDM 2, HTN, HLD, history of PE on long-term anticoagulation with warfarin, chronic low back pain, Gauthier's esophagus and anemia of chronic disease. Patient is s/p elective right foot triple arthrodesis by Dr. Jimenez. His last HD was . He denies any SOB or leg swelling. he has left UA AVF. He is normally dialysed for 4hrs. Allergies Allergy/AdvReac Type Severity Reaction Status Date / Time lisinopril Allergy Unknown NOT TO Verified 12/02/19 08:32 TAKE DUE TO KIDNEY DISEASE pioglitazone Allergy Unknown NOT TO Verified 12/02/19 08:32 TAKE DUE TO KIDNEY DISEASE Home Medications Home Medications Medication Instructions Recorded Confirmed Type acetaminophen [Tylenol Arthritis 1,300 mg PO Q12H PRN 07/05/19 12/02/19 History Pain] atorvastatin 20 mg PO HS 07/05/19 12/02/19 History calcium acetate(phosphat bind) 2,001 - 2,668 mg PO TIDM 07/05/19 12/02/19 History docusate sodium [Stool Softener] 100 mg PO DAILY 07/05/19 12/02/19 History hydralazine 25 mg PO QAM 07/05/19 12/02/19 History insulin glargine [Lantus U-100 55 - 75 unit SUBCUT HS 07/05/19 12/02/19 History Insulin] omeprazole 20 mg PO BID 07/05/19 12/02/19 History warfarin 2 mg PO 3XWK 07/05/19 12/02/19 History warfarin 4 mg PO 4XWK 07/05/19 12/02/19 History B complex-vitamin C-folic acid 1 tab PO DAILY 10/26/19 12/02/19 History [Renal Vitamin] insulin lispro [Humalog U-100 55 - 79 sliding scale dose SUBCUT 10/26/19 12/02/19 History Insulin] TID metoprolol tartrate 12.5 mg PO BID 10/26/19 12/02/19 History Lovenox SUBCUT DAILY 12/02/19 History Patient History Medical History A-V fistula LUE Anemia Ankle pain Barretts esophagus hx Chronic back pain Chronic kidney disease Deep vein thrombosis ~2009 S/P KNEE SURGERY Degenerative disc disease Diabetes mellitus, type 2 iddm Generalized pain GERD (gastroesophageal reflux disease) Hemodialysis patient Thursday, & Thursday at [facility] in [place], [place] Hyperlipidemia Hypertension Kidney stones On anticoagulant therapy d/t history of blood clots Osteoarthritis Pulmonary embolism over 10 years ago, separate incident from DVT Surgical History H/O shoulder replacement right History of cardiac cath [facility] July 2019. no stents. History of carpal tunnel release bilateral History of cataract surgery bilateral History of colonoscopy History of esophagogastroduodenoscopy (EGD) History of herniorrhaphy left inguinal hernia repair History of open reduction and internal fixation (ORIF) procedure left femur History of total knee replacement bilateral S/P arteriovenous (AV) fistula creation left S/P revision of total knee right Family History Mother Family hx of colon cancer Uncle Family history of diabetes mellitus Social History Preferred Language: Bulgarian Communication Ability: Effective Custodial Engineer Required: No Beliefs That Will Affect Care: None Current Living Situation: Spouse Other Information That Helps Us Care for You: No Feels Safe at Home: Yes Safety Concerns: Feels Safe At This Time Smoking Status: Former smoker Tobacco Type: cigarettes and smokeless tobacco ; Do You Dip or Chew Tobacco: No (quit) ; Smoking End Date: quit ; Second Hand Exposure: Yes (hx) ; Tobacco Cessation Education Requested by Patient: No Hx Alcohol Use: Yes Alcohol type: hard liquor Hx Substance Use: No Review of Systems Review of Systems: All systems reviewed & are unremarkable except as noted in HPI & below Physical Exam Physical Exam: General exam: Appears comfortable, no acute distress HEENT: Pupils are equal and reactive to light Neck: No JVD, neck is supple trachea is midline Respiratory system: Clear breath sounds bilaterally. Gastrointestinal: Abdomen is soft, non distended, non tender, bowel sounds are present CVS: Regular rate and rhythm. No murmurs, rubs or gallops Musculoskeletal: No joint or muscle tenderness Extremities: Non tender, no edema, peripheral pulses are present Neuro: Oriented, no tremors, no focal neurological deficits Skin: No rashes Access: AVF Results & Data Vital Signs (Past 12 Hours) Vital Signs Temp Pulse Pulse Resp BP Pulse Ox 12/02/19 20:12 84 117/64 12/02/19 18:33 36.9 C 89 16 136/62 97 12/02/19 17:20 37.1 C 95 H 18 137/55 L 96 12/02/19 16:30 37.1 C 81 18 134/66 95 12/02/19 15:10 85 14 133/45 L 96 12/02/19 15:00 37.3 C 88 19 133/84 97 12/02/19 14:50 92 H 17 109/59 L 95 12/02/19 14:40 87 16 129/79 97 12/02/19 14:30 91 H 15 125/56 L 97 12/02/19 14:20 92 H 21 128/55 L 97 12/02/19 14:10 84 17 129/50 L 99 12/02/19 14:04 37.1 C 87 24 123/47 L 99 Laboratory Results 12/02/19 08:46
[2019-12-03] MEDS: CEFAZOLIN 2000MG 2,000 MG/15 ML SYR IV SCH (01:42)
[2019-12-03] MEDS: ONDANSETRON INJ 2 MG/ML 2 ML VIAL IV PRN ×2 (01:46→13:12)
[2019-12-03] MEDS: ACETAMINOPHEN 500 MG TAB PO SCH ×2 (06:20→13:09)
[2019-12-03 06:39] LABS: Hematocrit (blood only) 29.4 % (42-52); Hemoglobin 9.7 g/dL (14.0-18.0); Mean Corpuscular Hemoglobin 33.4 pg (25-34); Mean Corpuscular Volume 101.4 fL (80-100); Mean Platelet Volume 8.8 fL (7.4-10.4); Platelet Count 189 K/uL (130-400); RDW Coefficient of Variation 15.7 % (11.5-14.5); RDW Standard Deviation 56.6 fL (36.4-46.3); White Blood Count 9.71 K/uL (4.8-10.8)
[2019-12-03 06:55] LABS: INR 1.1 (0.9-1.1); Prothrombin Time 10.9 Seconds (9.0-12.0)
[2019-12-03] MEDS ORDERED: SODIUM CHLORIDE 0.9% 1000ML 1,000 ML IV PRN (07:00)
[2019-12-03] MEDS: OXYCODONE HCL IR 5 MG TAB (IMMEDIATE RELEASE) PO PRN ×3 (07:15→19:53)
[2019-12-03 07:22] LABS: BUN Creatinine Ratio 6.4 (10-20); Calcium 8.8 mg/dl (8.5-10.1); Est GFR (African American) 5.6; Est GFR (Non-African American) 4.8; Potassium 3.5 mmol/L (3.5-5.1)
[2019-12-03] MEDS: INSULIN ASPART 100 UNITS/ML 3 ML PEN SC SCH ×3 (08:40→16:36)
[2019-12-03] MEDS: CALCIUM ACETATE 667 MG CAP PO SCH ×3 (08:45→20:06)
[2019-12-03] MEDS: DOCUSATE SODIUM 100 MG CAP PO SCH (08:46)
[2019-12-03] MEDS ORDERED: MULTIVITAMIN TAB PO SCH (09:00)
[2019-12-03] MEDS ORDERED: ENOXAPARIN INJ 120 MG/0.8 ML SYR SQ SCH (09:00)
[2019-12-03] MEDS ORDERED: NEPHROCAPS PO SCH (09:00)
--- NOTE | 2019-12-03 09:14 | Orthopedic Progress Note ---
Date of Service December 03, 2019 Assessment & Plan (1) Posterior tibial tendon dysfunction (PTTD) of right lower extremity: POD #1 s/p 1. Right foot triple arthrodesis. 2. Percutaneous tendo Achilles lengthening. 3. Resection os trigonum Dialysis today. NWB RLE Splint intact for the next 2 weeks. Hemovac to be removed prior to d/c. If pain remains controlled, plan for d/c home later today. DVT prophylaxis--coumadin. (2) Primary osteoarthritis, right ankle and foot: (3) Achilles tendon contracture, right: Admission and Anticipated Discharge Date Admission Date: December 02, 2019 Subjective Doing well. Pain controlled. Block wore off early this AM but pain medication kept pain controlled. Has been NWB RLE. Denies CP, SOB, LH. Physical Exam Constitutional: well developed and well nourished; no acute distress and not intoxicated appearing ENMT: external ear and nose normal, oropharynx normal Neck: trachea midline, no thyromegaly Respiratory: normal respiratory effort, lungs clear to auscultation Cardiovascular: Rate/Rhythm: regular rate and regular rhythm Gastrointestinal (Abdomen): normal bowel sounds, soft, nontender, no hepatosplenomegaly Musculoskeletal: Ankle: + surgical incision (Right ankle: short leg splint C/D/I.) and + surgical drain present (215 cc today; 50 cc previous shift); no skin erythema and no ecchymosis Right foot: toes are mobile. Cap refill <2 seconds Skin: no rashes, warm and dry Neurologic: normal touch/pain/proprioception Psychiatric: A+Ox3, euthymic affect Lymphatic: no cervical or axillary lymphadenopathy Results & Data ([facility]) Vital Signs (Past 12 Hours) Vital Signs Temp Pulse Resp BP Pulse Ox 12/03/19 07:14 37.0 C 75 16 128/69 97 12/03/19 02:56 36.5 C 77 16 131/56 L 96 12/02/19 23:37 36.7 C 79 16 122/69 92
[2019-12-03] MEDS: METOPROLOL TARTRATE 25 MG TAB PO SCH (10:07)
--- NOTE | 2019-12-03 15:41 | Nephrology Progress Note ---
Date of Service December 03, 2019 Assessment & Plan (1) ESRD (end stage renal disease): ESRD on HD TTS. Last HD was . Planned 3.5 hr HD today; however dialysis nurses tied up in urgent case and pt to get late start on HD. He refuses 3.5 or even 3 hr tx; also offered 2hrs today and 2 hrs 12/05 as outpatient but he declines these. Willing to stay for 2.5 hrs. Did d/w his OP unit and pt historically not with issues of volume overload or hyperkalemia. Electrolytes remain stable and no signs of volume overload. For HD today and then next tx 12/06 (2) Anemia: Hb is 9.7 post op; no heparin today in tx; would not start PRETTY either. (3) Hypertension: BP is controlled. Hold hydralazine in the morning pre HD Admission and Anticipated Discharge Date Admission Date: December 02, 2019 Subjective pt upset that his tx is delayed to late in day d/t other urgent cases; no n/v, no sob; still voids daily; discussed w/ OP unit > he does not miss HD or have issues w/ fluid overload or potassium historically. Review of Systems Review of Systems: All systems reviewed & are unremarkable except as noted in HPI & below Physical Exam Constitutional: well developed, well nourished, + obese and cooperative; no acute distress Eyes: EOM intact bilaterally ENMT: Ears: no external ear abnormality Nose: no external nose abnormality Mouth: + dry oral mucous membranes Neck: no nuchal rigidity Respiratory: normal respiratory effort Auscultation: lungs clear to auscultation bilaterally and + diminished lung sounds Cardiovascular: RRR, no murmur, no edema Extremities: + AV fistula (LUE + t/b) Gastrointestinal (Abdomen): Inspection/Auscultation: normal bowel sounds; a bdomen not distended Percussion/Palpation: abdomen soft; abdomen nontender Musculoskeletal: Extremities: strength 5/5 throughout Skin: no rashes, warm and dry R toes cyanotic (dependent) Neurologic: blake, fluent speech, no tremor Psychiatric: A+Ox3, euthymic affect Speech: normal rate/rhythm/volume of speech Results & Data ([facility]) Vital Signs (Past 12 Hours) Vital Signs Temp Pulse Pulse Resp BP Pulse Ox 12/03/19 11:12 36.7 C 75 16 137/68 92 02/15/20 10:04 87 146/74 H 12/03/19 07:14 37.0 C 75 16 128/69 97 Laboratory Results 12/03/19 06:22 12/03/19 06:22
--- NOTE | 2019-12-03 19:51 | Hospitalist Progress Note ---
Date of Service December 03, 2019 Assessment & Plan (1) S/P ankle arthrodesis: Doing well postoperatively. (2) Hypertension: Continue metoprolol and hydralazine. (3) ESRD (end stage renal disease): CKD V on hemodialysis. Management per Nephrology. (4) Diabetes mellitus, type 2: FBS = 132. Continue Lantus / NovoLog per protocol. 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 Bridge therapy with enoxaparin perioperatively. (6) Encounter for consultation: Thank you for this consultation. We will follow the patient with you during their hospital stay. My cell # is [phone]. You can reach a member of the [facility] Medicine Team 11/05 via pager @ [phone]. Admission and Anticipated Discharge Date Admission Date: December 02, 2019 Subjective Recheck for medical management. Patient seen in their room around 1440. Doing well postoperatively. Pain well-controlled. Hemodialysis treatment delayed because of emergent dialysis case. Review of Systems: Constitutional- no fever. Cardiac- no chest pain. Pulmonary- no cough or SOB. GI- no nausea, vomiting, diarrhea, melena, hematochezia. - no urinary symptoms. Otherwise, as noted above. Physical Exam Constitutional: no acute distress Respiratory: no respiratory distress Auscultation: lungs clear to auscultation bilaterally Cardiovascular: Rate/Rhythm: regular rate and regular rhythm Heart Sounds: no gallop, no murmur and no cardiac rub Vessels: no JVD Extremities: no calf tenderness and no edema Gastrointestinal (Abdomen): normal bowel sounds, soft, nontender, no hepatosplenomegaly Musculoskeletal: right foot bandaged Skin: no rashes, warm and dry Psychiatric: Orientation: alert and oriented x 3 Results & Data ([facility]) Vital Signs (Past 12 Hours) Vital Signs Temp Pulse Pulse Pulse Pulse Resp BP 12/03/19 19:04 82 139/66 12/03/19 18:41 78 132/64 12/03/19 18:20 78 140/61 12/03/19 17:43 79 136/62 12/03/19 17:24 76 136/67 12/03/19 17:00 36.9 C 79 12/03/19 15:42 37.0 C 78 18 12/03/19 11:12 36.7 C 75 16 12/03/19 10:04 87 BP Pulse Ox 12/03/19 19:04 12/03/19 18:41 12/03/19 18:20 12/03/19 17:43 12/03/19 17:24 12/03/19 17:00 12/03/19 15:42 139/68 94 12/03/19 11:12 137/68 92 12/03/19 10:04 146/74 H Laboratory Results 12/03/19 06:22 12/03/19 06:22
[2019-12-03] MEDS: WARFARIN SOD 5 MG TAB PO SCH (19:54)
[2019-12-03] MEDS ORDERED: INSULIN GLARGINE SOLOSTAR 100 UNITS/ML 3 ML PEN SC SCH (21:00)
--- NOTE | 2019-12-08 10:59 | Discharge Summary ---
Date of Service December 08, 2019 Principal Diagnosis right hindfoot osteoarthritis Discharge Exam Constitutional well developed and well nourished; no acute distress and not intoxicated appearing ENMT external ear and nose normal, oropharynx normal Neck trachea midline, no thyromegaly Respiratory normal respiratory effort, lungs clear to auscultation Cardiovascular Rate/Rhythm: regular rate and regular rhythm Gastrointestinal (Abdomen) normal bowel sounds, soft, nontender, no hepatosplenomegaly Musculoskeletal Gait: + antalgic gait (right) Ankle: + surgical incision (Right ankle: short leg splint C/D/I.) and + surgical drain present (215 cc today; 50 cc previous shift); no skin erythema and no ecc hymosis Skin no rashes, warm and dry Neurologic normal touch/pain/proprioception Psychiatric A+Ox3, euthymic affect Lymphatic no cervical or axillary lymphadenopathy Discharge Data Allergies Allergy/AdvReac Type Severity Reaction Status Date / Time lisinopril Allergy Unknown NOT TO Verified 12/02/19 08:32 TAKE DUE TO KIDNEY DISEASE pioglitazone Allergy Unknown NOT TO Verified 12/02/19 08:32 TAKE DUE TO KIDNEY DISEASE Consultations 12/02/19 14:15 Consult Nephrology Routine 12/02/19 14:17 Consult Hospitalist Routine 12/02/19 15:21 Consult Case Management - Discharge Planning Routine Procedures Performed Operation Date: 12/02/19 10:20 Actual Procedures p Right Foot Triple Arthodesis, Resection of Os Trigonum,(Right) - Kwame Jimenez DO s Percutaneous Achilles Tendon Lengthening(Right) - Kwame Jimenez DO Ordered Studies 12/02/19 05:00 US - OR guided needle placemen Routine 12/02/19 10:20 FL fluoroscopy <1hr Routine FL foot RT 2V Routine Hospital Course (1) Posterior tibial tendon dysfunction (PTTD) of right lower extremity: POD #1 s/p 1. Right foot triple arthrodesis. 2. Percutaneous tendo Achilles lengthening. 3. Resection os trigonum Dialysis today. NWB RLE Splint intact for the next 2 weeks. Hemovac to be removed prior to d/c. If pain remains controlled, plan for d/c home later today. DVT prophylaxis--coumadin. (2) Primary osteoarthritis, right ankle and foot: (3) Achilles tendon contracture, right: Total Time Total Time Spent Total Time Spent (In Minutes): 30 Total Time Includes: Examination of the Patient, Discharge Planning, Medication Reconciliation and Communication With Other Providers Discharge Plan Discharge Items Patient Disposition: Home - Self-Care Reason For Visit: Right Foot Achilles Constracture, Posterior Tibial Discharge Diagnosis: right hindfoot osteoarthritis Activity: Per Instructions section Weightbearing: Right non-weightbearing Non-emergency contact: Surgeon Call non-emergency contact if: your pain is not controlled, your pain is worsening and your temperature is above 101 Follow-up/Referrals: Chele Huitron DO [Primary Care Provider] - Diet: Regular and Carb Consistent or DM2 Addtl Attending Provider Instructions: ACTIVITY RECOMMENDATIONS: Limitations: No weight bearing to affected limb at all times. SPECIAL CARE INSTRUCTIONS: * Your coumadin was restarted after surgery. You should continue it as previously prescribed. * Some drainage onto the dressing is normal and is no cause for alarm. * Some swelling is natural especially after walking. * When resting, keep your foot elevated above the level of your heart. * Call [facility] if you notice: -Increased drainage -Fever over 101 degrees F -Severe constant pain BANDAGE: * Leave bandage/cast in place unless otherwise directed. * Keep bandage/cast dry at all times. FOLLOW UP VISIT WITH DR. JIMENEZ If appointment is not already scheduled: Please call [facility] after you get home today to schedule a follow-up appointment for [address] Jimenez at . Pending Studies at Discharge: No Stand-Alone Forms: My [employer], Opioid Pain Management, Smoking Cessation Medications and DC Order Prescriptions: New oxycodone-acetaminophen [Percocet] 5-325 mg tablet 1 - 2 tab PO Q4H PRN (Reason: pain) Qty: 30 RF: 0 promethazine 25 mg tablet 25 mg PO Q8H PRN (Reason: nausea and vomiting) Qty: 20 RF: 0 Continued atorvastatin 40 mg Tablet 20 mg PO HS RF: 0 Lantus U-100 Insulin 100 unit/mL Solution 55 - 75 unit SUBCUT HS RF: 0 hydralazine 25 mg Tablet 25 mg PO QAM RF: 0 warfarin 2 mg Tablet 2 mg PO 3XWK RF: 0 warfarin 2 mg Tablet 4 mg PO 4XWK RF: 0 docusate sodium [Stool Softener] 100 mg Capsule 100 mg PO DAILY RF: 0 calcium acetate(phosphat bind) 667 mg Capsule 2,001 - 2,668 mg PO TIDM RF: 0 omeprazole 20 mg Tablet,Delayed Release (Dr/Ec) 20 mg PO BID RF: 0 Renal Vitamin 0.8 mg Tablet 1 tab PO DAILY RF: 0 Humalog U-100 Insulin 100 unit/mL Cartridge 55 - 79 sliding scale dose SUBCUT TID RF: 0 metoprolol tartrate 25 mg Tablet 12.5 mg PO BID RF: 0 Lovenox subcut DAILY RF: 0 Discontinued acetaminophen [Tylenol Arthritis Pain] 650 mg Tablet Extended Release 1,300 mg PO Q12H PRN (Reason: Pain) RF: 0 Discharge Orders: Discharge Order (Routine); Ordered 12/03/19 Ordered By: Segundo Thompson/Other Patient Handouts: What to Know When TakingWarfarin, DVT Prevent Admission Data Admit Date/Time: 12/02/19 13:53 Attending Provider: Kwame Jimenez Admit Provider: Kwame Jimenez Primary Care Provider: Chele Huitron Other Providers: Bryan Agosto ; Mike Núñze ; [facility] Other Interventions: Discharge Summary Assessment (RN) Last Done: 12/03/19 13:45 DC Date/Time DO NOT enter until pt leaves facility: 12/03/19 20:35
== END 2019-12-03 20:35 | disposition home or self-care (01) | DRG 492 ==
LOC: ASU 07:56 → INTOOBSV 13:53 → 3E 13:53